=== PATIENT | male | born 1965 | race Two or more races ===

== ENCOUNTER 2025-08-13 13:05 | Inpatient (IN) | payer OTHER ==
[~2025-08-13] VITALS: Ht 152.4 cm; Wt 112.5 kg
[2025-08-13] MEDS ORDERED: ATORVASTATIN CALCIUM 40 MG TABLET PO STA (14:05)
[2025-08-13] MEDS ORDERED: NITROGLYCERIN IN 5 % DEXTROSE 250 ML IV SCH ×2 (14:05→18:00)
[2025-08-13] MEDS ORDERED: ASPIRIN 325 MG TABLET PO STA (14:05)
--- NOTE | 2025-08-13 14:14 | NUR ---
SE RECIBE PTE MASCULINO ALERTA Y ORIENTADO, AL MOMENTO PACIENTE REFIERE LUI DOLOR DE PECHO Y CALAMBRE EN BRAZO NARCISA. AL MOMENTO SE LE REALIZA EKG SE PRESENTA A MEDICO EMERGENCIOLOGO, SE LE SOSA SIGNOS VITALES. PTE SE COLOCA EN AREA DE ICU - 2 CAMA 1. AL MOMENTO PACIENTE EVALUADO POR MEDICO.
[2025-08-13] MEDS ORDERED: NITROGLYCERIN IN 5 % DEXTROSE 50 MG/250 ML BOTTLE IV ONE (14:32)
[2025-08-13] MEDS ORDERED: ACETAMINOPHEN 500 MG GEL..CAP PO ONE ×2 (14:46→20:09)
[2025-08-13 15:11] LABS: BASO % 0.6 % (0.1-1.2); EOS # 0.05 (0.04-0.54); EOS % 0.5 % (0.7-7.0); LYMPH # 2.36 (1.18-3.74); LYMPH % 24.9 % (19.3-53.1); MEAN PLATELET VOLUME 10.80 fl (9.4-12.4); MONO # 0.72 (0.24-0.82); MONO % 7.6 % (4.7-12.5); NEUT # 6.26 (1.56-6.13); NEUT % 66.0 % (34.0-71.1); RED CELL DISTRIBUTION WIDTH 13.5 % (11.6-14.4)
[2025-08-13] MEDS ORDERED: METFORMIN HCL1000 M2 PO (15:11)
[2025-08-13] MEDS ORDERED: CARDURA XL4 MG PO (15:12)
[2025-08-13] MEDS ORDERED: LIPITOR40 MG PO (15:12)
[2025-08-13] MEDS ORDERED: COZAAR50 MG PO (15:12)
--- NOTE | 2025-08-13 15:13 | NUR ---
SE RECIBE PTE MASCUILINO DE 60 YRS ALERTA CONCIENTE Y TRANQUILO EN EL AREA DE ICU-2 SE LE CONECTA A MONITOR CARDIACO Y OXIMENTRIA SE TRACIE MUESTRA DE KRISTIN ORDENADO, SE COMIENZA EN TRIDIL A 3 ML HRS.SE MANTIENE BAJO OBSERVACION.
[2025-08-13 15:21] LABS: D DIMER 0.7 MG/L
[2025-08-13 15:26] LABS: ALT/SGPT 47 U/L (12-78); AST/SGOT 28 U/L (15-37); BILIRUBIN TOTAL 0.61 mg/dL (0.3-1.2); BUN CREA RATIO 17 (7.0-25.0); CREATININE SERUM 0.76 mg/dL (0.70-1.30); GFR 103.92; GLOBULINA 4.1 G/DL (2.4-3.5); GLUCOSE FASTING 155 mg/dL (65-100); OSMOLALITY SERUM 275 MOSM/KG (275-295)
[2025-08-13 15:34] LABS: URINE APPEARANCE Clear; URINE BILIRRUBIN Negative (NEGATIVE); URINE BLOOD Negative; URINE COLOR Yellow; URINE GLUCOSE Negative (NEGATIVE); URINE KETONE Trace (NEGATIVE); URINE LEUKOCYTE Negative; URINE NITRATE Negative; URINE PROTEIN Negative (NEGATIVE); URINE UROBILINOGEN 0.2 E.U./dl
--- NOTE | 2025-08-13 15:39 | NUR ---
SE RECIBE PTE ALERTA Y ORIENTADO X3. EN CAMA BAJA CON BARANDAS ELEVADAS POR SEGURIDAD. CON BUEN PATRON RESPIRATORIO. CONECTACO A MONITOR CARDIACO Y OXIMETRIA DE PULSO CONTINUA. CANALIZADO EN ANTE BRAZO LT CON ANGIO #[id number], RECIBIENDO DRIP DE TRIDIL 50MG/250ML A 3MLS/HR. PTE ORINANDO ESPONTANEO. PEND CHEST X-RAY Y ABG
[2025-08-13 15:40] LABS: INR 0.98
[2025-08-13 15:42] LABS: URINE BACTERIA 1.2 uL (0.0-1933); URINE CAST 0.00 uL (0.0-1.40); URINE EPITHELIAL CELLS 1.2 uL (0.0-38.8); URINE RBC 1.6 uL (0.0-20.8); URINE WBC 0.4 uL (0.0-23.2)
[2025-08-13] MEDS ORDERED: TICAGRELOR 90 MG TABLET PO STA (16:15)
[2025-08-13] MEDS ORDERED: ENOXAPARIN SODIUM 80 MG/0.8 ML SYRINGE SUBCUTANEO STA (16:15)
[2025-08-13] MEDS ORDERED: ENOXAPARIN SODIUM 100 MG/ML SYRINGE SUBCUTANEO STA (17:07)
[2025-08-13] MEDS ORDERED: ATORVASTATIN CALCIUM 40 MG TABLET PO SCH (17:24)
[2025-08-13] MEDS ORDERED: ASPIRIN 81 MG TABLET.EC PO SCH (17:25)
[2025-08-13] MEDS ORDERED: TICAGRELOR 90 MG TABLET PO SCH (17:26)
[2025-08-13] MEDS ORDERED: ENOXAPARIN SODIUM 100 MG/ML SYRINGE SUBCUTANEO SCH (17:27)
[2025-08-13] MEDS ORDERED: MORPHINE SULFATE 2 MG/ML SYRINGE IV PRN (17:30)
[2025-08-13] MEDS ORDERED: DEXTROSE 50 % IN WATER 0.5 G/ML DISP.SYRIN IV PRN (17:30)
[2025-08-13] MEDS ORDERED: INSULIN LISPRO 1,000 UNIT/10 ML UNITS SUBCUTANEO PRN (17:30)
[2025-08-13] MEDS ORDERED: LISINOPRIL 10 MG TABLET PO PRN (18:00)
[2025-08-13] MEDS ORDERED: NICOTINE 21MG/24HR PATCH.TD24 TD ONE (18:00)
[2025-08-13 18:25] LABS: CHOL HDL RATIO 3.8 (0-5.0); HDL 42.0 mg/dl (40-60); LDL 96.0 mg/dl (0-130); VLDL 22.0 (0-39)
[2025-08-13 18:36] LABS: T4 FREE 1.09 NG/ML (0.76-1.46); TSH 1.88 uIU/mL (0.358-3.74)
[2025-08-13 19:32] LABS: CKMB 19.3 NG/ML (0.5-3.6)
[2025-08-13 19:41] VITALS: BP 153/95; O2SAT 99
[2025-08-14] VITALS (16 sets, daily range): BP systolic 117–175; BP diastolic 60–96; O2SAT 95–100
[2025-08-14] MEDS ORDERED: ACETAMINOPHEN 500 MG GEL..CAP PO ONE (02:40)
[2025-08-14] MEDS ORDERED: INSULIN LISPRO 1,000 UNIT/10 ML UNITS SUBCUTANEO ONE ×3 (02:56→15:46)
[2025-08-14] MEDS ORDERED: ENOXAPARIN SODIUM 60 MG/0.6 ML SYRINGE SUBCUTANEO SCH (05:00)
[2025-08-14] MEDS ORDERED: ENOXAPARIN SODIUM 60 MG/0.6 ML SYRINGE SUBCUTANEO ONE ×2 (05:05→06:06)
[2025-08-14] MEDS ORDERED: TICAGRELOR 90 MG TABLET PO ONE ×2 (06:45→17:27)
[2025-08-14] MEDS ORDERED: NICOTINE 21MG/24HR PATCH.TD24 TD SCH (17:00)
[2025-08-14] MEDS ORDERED: ENOXAPARIN SODIUM 100 MG/ML SYRINGE SUBCUTANEO SCH (21:00)
[2025-08-15] VITALS (8 sets, daily range): BP systolic 134–180; BP diastolic 87–98; O2SAT 95–98
[2025-08-15] MEDS ORDERED: ACETAMINOPHEN 500 MG GEL..CAP PO ONE (07:15)
[2025-08-15] MEDS ORDERED: PANTOPRAZOLE SODIUM 40 MG TABLET.DR PO SCH (09:15)
[2025-08-15] MEDS ORDERED: ACETAMINOPHEN 325 MG TABLET PO PRN (09:15)
[2025-08-15] MEDS ORDERED: METOPROLOL TARTRATE 25 MG TABLET PO SCH (09:15)
[2025-08-15] MEDS ORDERED: LOSARTAN POTASSIUM 25 MG TABLET PO SCH (09:16)
[2025-08-15] MEDS ORDERED: hydrALAZINE HCL 20 MG VIAL IV PRN (20:15)
[2025-08-15] MEDS ORDERED: ORPHENADRINE CITRATE 30 MG/ML AMPUL IM ONE (20:15)
[2025-08-15] MEDS ORDERED: MORPHINE SULFATE 2 MG/ML SYRINGE IV PRN (20:30)
[2025-08-15] MEDS ORDERED: CHLORDIAZEPOXIDE HCL 25 MG CAPSULE PO SCH (20:55)
[2025-08-15] MEDS ORDERED: ORPHENADRINE CITRATE 30 MG/ML AMPUL IV ONE (21:00)
[2025-08-15] MEDS ORDERED: THIAMINE HCL 100 MG/ML 2 ML VIAL IV SCH (21:12)
[2025-08-15] MEDS ORDERED: LOSARTAN POTASSIUM 50 MG TABLET PO STA (21:56)
[2025-08-16] VITALS (17 sets, daily range): BP systolic 79–174; BP diastolic 59–100; O2SAT 95–100
[2025-08-16] MEDS ORDERED: LORazepam 2 MG/ML VIAL ONE (02:44)
[2025-08-16] MEDS ORDERED: LORazepam 2 MG/ML VIAL IV STA ×2 (02:48→03:07)
[2025-08-16] MEDS ORDERED: LORazepam 2 MG/ML VIAL IV PRN (03:15)
[2025-08-16 07:50] LABS: BASO % 0.2 % (0.1-1.2); EOS # 0.07 (0.04-0.54); EOS % 0.8 % (0.7-7.0); LYMPH # 1.50 (1.18-3.74); LYMPH % 17.3 % (19.3-53.1); MEAN PLATELET VOLUME 10.40 fl (9.4-12.4); MONO # 0.92 (0.24-0.82); MONO % 10.6 % (4.7-12.5); NEUT # 6.10 (1.56-6.13); NEUT % 70.5 % (34.0-71.1); RED CELL DISTRIBUTION WIDTH 13.3 % (11.6-14.4)
[2025-08-16 08:23] LABS: ALT/SGPT 40.0 U/L (12-78); AST/SGOT 39.0 U/L (15-37); BILIRUBIN TOTAL 0.91 mg/dL (0.3-1.2); BUN CREA RATIO 19.0 (7.0-25.0); CREATININE SERUM 0.58 mg/dL (0.70-1.30); GFR 141.96; GLOBULINA 3.7 G/DL (2.4-3.5); GLUCOSE FASTING 155.0 mg/dL (65-100); OSMOLALITY SERUM 274.0 MOSM/KG (275-295)
[2025-08-16] MEDS ORDERED: LOSARTAN POTASSIUM 25 MG TABLET PO SCH (09:00)
[2025-08-16] MEDS ORDERED: CHLORDIAZEPOXIDE HCL 25 MG CAPSULE PO SCH (09:00)
[2025-08-16] MEDS ORDERED: LOSARTAN POTASSIUM 50 MG TABLET PO SCH (09:00)
[2025-08-17] VITALS (16 sets, daily range): BP systolic 68–177; BP diastolic 37–98; O2SAT 92–100
[2025-08-17] MEDS ORDERED: AMIODARONE HCL 200 MG TABLET PO SCH (05:29)
[2025-08-18 04:00] VITALS: BP 136/83
[2025-08-18 06:22] LABS: BASO % 0.8 % (0.1-1.2); EOS # 0.14 (0.04-0.54); EOS % 1.8 % (0.7-7.0); LYMPH # 2.26 (1.18-3.74); LYMPH % 28.5 % (19.3-53.1); MEAN PLATELET VOLUME 10.60 fl (9.4-12.4); MONO # 1.02 (0.24-0.82); NEUT # 4.39 (1.56-6.13); NEUT % 55.2 % (34.0-71.1); RED CELL DISTRIBUTION WIDTH 13.0 % (11.6-14.4)
[2025-08-18 06:56] LABS: MONO % 12.8 % (4.7-12.5)
[2025-08-18 07:15] LABS: ALT/SGPT 110.0 U/L (12-78); AST/SGOT 78.0 U/L (15-37); BILIRUBIN TOTAL 0.65 mg/dL (0.3-1.2); BUN CREA RATIO 23.0 (7.0-25.0); CREATININE SERUM 0.74 mg/dL (0.70-1.30); GFR 107.17; GLOBULINA 3.6 G/DL (2.4-3.5); GLUCOSE FASTING 151.0 mg/dL (65-100); OSMOLALITY SERUM 278.0 MOSM/KG (275-295)
[2025-08-18 07:26] VITALS: O2SAT 97
[2025-08-18] MEDS ORDERED: ENOXAPARIN SODIUM 100 MG/ML SYRINGE SUBCUTANEO SCH (09:00)
[2025-08-18] MEDS ORDERED: APIXABAN 5 MG TABLET PO SCH (09:00)
[2025-08-18] MEDS ORDERED: CLOPIDOGREL BISULFATE 75 MG TABLET PO SCH (09:00)
[2025-08-18 12:00] VITALS: BP 141/85
[2025-08-18] MEDS ORDERED: ISOSORBIDE MONONITRATE 60 MG TABLET PO NR (12:00)
[2025-08-18 16:00] VITALS: BP 144/92; O2SAT 97
[2025-08-18] MEDS ORDERED: ORPHENADRINE CITRATE 100 MG TABLET PO SCH (17:00)
[2025-08-18] MEDS ORDERED: ORPHENADRINE CITRATE 100 MG TABLET PO PRN (18:56)
[2025-08-18 20:00] VITALS: BP 120/87; O2SAT 98
[2025-08-18 22:55] VITALS: BP 132/81; O2SAT 99
[2025-08-19 02:51] VITALS: BP 111/66; O2SAT 96
[2025-08-19] MEDS ORDERED: ISOSORBIDE MONONITRATE 60 MG TABLET PO SCH (09:00)
[2025-08-19] MEDS ORDERED: ATORVASTATIN CALCIUM 40 MG TABLET PO SCH (09:00)
[2025-08-19 09:30] VITALS: BP 138/83; O2SAT 95
[2025-08-19 15:34] LABS: COVID-19 AG NEGATIVE (NEGATIVE)
[2025-08-19 17:56] VITALS: BP 134/86
[2025-08-20 00:50] VITALS: BP 119/74; O2SAT 96
[2025-08-20] MEDS ORDERED: INSULIN GLARGINE,HUM.REC.ANLOG 1,000 UNITS/10 ML UNITS SUBCUTANEO SCH (09:00)
[2025-08-20 09:19] VITALS: BP 122/73; O2SAT 98
[2025-08-20 17:21] VITALS: BP 133/81
[2025-08-21 02:39] VITALS: BP 137/84; O2SAT 96
[2025-08-21 06:35] LABS: BASO % 1.0 % (0.1-1.2); EOS # 0.23 (0.04-0.54); EOS % 3.2 % (0.7-7.0); LYMPH # 2.51 (1.18-3.74); LYMPH % 34.9 % (19.3-53.1); MEAN PLATELET VOLUME 10.80 fl (9.4-12.4); MONO # 0.94 (0.24-0.82); NEUT # 3.40 (1.56-6.13); NEUT % 47.2 % (34.0-71.1); RED CELL DISTRIBUTION WIDTH 12.9 % (11.6-14.4)
[2025-08-21 06:57] LABS: MONO % 13.1 % (4.7-12.5)
[2025-08-21 07:12] LABS: ALT/SGPT 72.0 U/L (12-78); AST/SGOT 32.0 U/L (15-37); BILIRUBIN TOTAL 0.44 mg/dL (0.3-1.2); BUN CREA RATIO 21.0 (7.0-25.0); CREATININE SERUM 0.62 mg/dL (0.70-1.30); GFR 131.45; GLOBULINA 3.4 G/DL (2.4-3.5); GLUCOSE FASTING 130.0 mg/dL (65-100); OSMOLALITY SERUM 279.0 MOSM/KG (275-295)
[2025-08-21 09:14] VITALS: BP 138/90; O2SAT 95
== END 2025-08-21 09:50 | disposition designated cancer center or children's hospital (05) | DRG 281 ==
LOC: ER 13:06 → ICU-2 19:07 → ICU 08-15 19:20 → MEDI 08-18 20:03
PROVIDERS: General Practice; Internal Medicine; Physician Assistant Medical; ADMIT Internal Medicine; ATTEND Internal Medicine
PROC: B246ZZZ Ultrasonography of Right and Left Heart (ICD-10-PCS; principal; 2025-08-13)
PROC: BT4JZZZ Ultrasonography of Kidneys and Bladder (ICD-10-PCS; 2025-08-15)
PROC: 4A12X4Z Monitoring of Cardiac Electrical Activity, External Approach (ICD-10-PCS; 2025-08-18)
DX: I21.4 Non-ST elevation (NSTEMI) myocardial infarction (principal); I48.20 Chronic atrial fibrillation, unspecified; I24.9 Acute ischemic heart disease, unspecified; E11.65 Type 2 diabetes mellitus with hyperglycemia; F10.21 Alcohol dependence, in remission; F17.201 Nicotine dependence, unspecified, in remission; M54.89 Other dorsalgia; M25.562 Pain in left knee; M25.561 Pain in right knee; E88.09 Other disorders of plasma-protein metabolism, not elsewhere classified; R74.01 Elevation of levels of liver transaminase levels; I10 Essential (primary) hypertension; F41.9 Anxiety disorder, unspecified; Z79.84 Long term (current) use of oral hypoglycemic drugs